=== PATIENT | female | born 1955 | race Caucasian/White ===

== ENCOUNTER → 2018-04-19 10:51 | Outpatient (CLI) | payer OTHER, SELFPAY ==
[2018-04-22 14:35] LABS: HPV Reflexed? NOT INDICATED
== END ==
PROVIDERS: Family Provider Family Medicine; PCP Family Medicine; Visit Provider Obstetrics & Gynecology
DX: Z12.4 Encounter for screening for malignant neoplasm of cervix (principal)
CPT/HCPCS: 88175; G0145

== ENCOUNTER → 2019-05-27 13:52 | Outpatient (CLI) | payer OTHER, SELFPAY ==
[2019-03-30 16:02] VITALS: BMI 44.2
[2019-05-27 15:51] LABS: Creatinine, Serum 0.62 mg/dL (0.55-1.02); EST Glomerular Filtration Rate 103 mL/min (>60); Est Glom Filt Rate - Afr Amer 125 mL/min (>60)
== END ==
PROVIDERS: Family Provider Preventive Medicine Occupational Medicine; PCP Preventive Medicine Occupational Medicine; Referring Provider Physician Assistant Surgical; Visit Provider Physician Assistant Surgical
DX: Z01.818 Encounter for other preprocedural examination (principal); M16.12 Unilateral primary osteoarthritis, left hip
CPT/HCPCS: 36415; 82565

== ENCOUNTER → 2020-04-10 09:59 | Outpatient (CLI) | payer OTHER, SELFPAY ==
[2020-03-19 15:40] VITALS: BMI 45.3
--- NOTE | 2020-04-10 10:00 | ECHOD_ITS ---
Reason For Study: Murmur Procedure This was a 2D Doppler, Color Flow transthoracic echocardiogram. The exam was of adequate technical quality. Exam performed in department. Left Ventricle Normal LV size. Left ventricular systolic function is normal. The estimated ejection fraction is 65 %. No evidence for diastolic dysfunction. No regional wall motion abnormalities noted. Right Ventricle Normal RV size. Normal systolic function. Atria Normal left atrium. Normal right atrium. Probable chiari network. No doppler evidence for ASD. Mitral Valve There is no mitral annular calcification. Normal mitral valve. Mild (1+) mitral valve insufficiency. Tricuspid Valve Normal tricuspid valve. Mild tricuspid valve insufficiency. Right ventricular systolic pressure estimated to be 28 mmHg. Aortic Valve Trisinus/trileaflet aortic valve. Normal aortic valve. Pulmonic Valve The pulmonic valve is not well visualized. Great Vessels Normal sized aortic root. Pericardium/Pleural No pericardial effusion. MMode/2D Measurements & Calculations LVIDd: 4.5 cm IVSd: 1.3 cm Ao root diam: 2.5 cm LVIDs: 2.5 cm LVPWd: 1.1 cm LA dimension: 4.0 cm RVDd: 3.6 cm FS: 44.5 % LAV(MOD-bp): 53.2 ml LA A4 area: 19.9 cm2 RA A4 area: 17.5 cm2 LAV(MOD-bp) Indexed: 25.5 ml/m2 LAV(MOD-sp2): 43.7 ml LAV(MOD-sp4): 51.3 ml Time Measurements MV dec time: 0.24 sec Doppler Measurements & Calculations MV E max daron: 93.6 cm/sec Lat Peak E' Daron: 7.2 cm/sec Med Peak E' Daron: 7.7 cm/sec MV A max daron: 80.4 cm/sec E/E' lat: 13.0 E/E' med: 12.1 MV E/A: 1.2 MV V2 max: 101.6 cm/sec MV P1/2t max daron: 100.3 cm/sec Ao V2 max: 172.9 cm/sec MV max P.1 mmHg MV P1/2t: 93.1 msec Ao max P.0 mmHg MV V2 mean: 56.6 cm/sec MV dec slope: 315.4 cm/sec2 MV mean P.5 mmHg MVA(P1/2t): 2.4 cm2 MV V2 VTI: 32.0 cm LV V1 max: 159.2 cm/sec PA V2 max: 82.4 cm/sec TR max daron: 249.3 cm/sec LV V1 max P.1 mmHg TR max P.9 mmHg Interpretation Summary Left ventricular systolic function is normal. The estimated ejection fraction is 65 %. Probable chiari network. Mild (1+) mitral valve insufficiency. Mild tricuspid valve insufficiency. Right ventricular systolic pressure estimated to be 28 mmHg. No evidence for diastolic dysfunction. Ordering Physician: Josh Willis Referring Physician: Ahmet Mayes Performed By: Cruz Harry RCS
== END ==
PROVIDERS: PCP Preventive Medicine Occupational Medicine; Referring Provider Internal Medicine Cardiovascular Disease; Visit Provider Internal Medicine Cardiovascular Disease
DX: R55 Syncope and collapse (principal); R01.1 Cardiac murmur, unspecified; E78.5 Hyperlipidemia, unspecified; I10 Essential (primary) hypertension
CPT/HCPCS: 93306

== ENCOUNTER → 2020-05-04 09:53 | Outpatient (CLI) | payer OTHER, SELFPAY ==
[2020-03-19 15:40] VITALS: BMI 45.3
--- NOTE | 2020-05-04 09:54 | VDLE_ITS ---
Reason For Study: Swelling Procedure LEFT Exam performed in department. GSV is normal. A preliminary report was called and/or faxed CFV is compressible, spontaneous, phasic, to Lazaro. competent, and demonstrates normal augmentation. FV is compressible, spontaneous, phasic, competent and demonstrates normal augmentation. POP V is compressible, spontaneous, phasic, competent and demonstrates normal augmentation. T/P Trunk is compressible. PTV is compressible. LT PerV is compressible. Interpretation Summary There is no evidence of left lower extremity deep vein thrombosis. Left great saphenous vein appears patent and compressible segmentally. Ordering Physician: Josh Willis Referring Physician: Ahmet Mayes Performed By: Brooke Claire RVT and Student
== END ==
PROVIDERS: PCP Preventive Medicine Occupational Medicine; Referring Provider Internal Medicine Cardiovascular Disease; Visit Provider Internal Medicine Cardiovascular Disease
DX: R60.0 Localized edema (principal)
CPT/HCPCS: 93971

== ENCOUNTER 2020-11-01 10:20 | Outpatient (RCR) | payer OTHER, SELFPAY ==
[2020-03-19 15:40] VITALS: BMI 45.3
[2020-11-01] MEDS: COVID-19 VACC, MRNA(PFIZER)/PF 30 MCG/0.3 ML SYRINGE IM (18:40)
[2020-11-22] MEDS: COVID-19 VACC, MRNA(PFIZER)/PF 30 MCG/0.3 ML SYRINGE IM (17:56)
== END 2020-11-01 23:59 ==
LOC: IMMUN 10:20
PROVIDERS: PCP Preventive Medicine Occupational Medicine; Referring Provider Family Medicine; Visit Provider Family Medicine
DX: Z23 Encounter for immunization (principal)
CPT/HCPCS: 0001A; 0002A; 91300

== ENCOUNTER → 2021-06-04 14:19 | Outpatient (CLI) | payer MEDICARE, OTHER, SELFPAY | PROVIDERS: PCP Preventive Medicine Occupational Medicine; Referring Provider Internal Medicine Cardiovascular Disease; Visit Provider Internal Medicine Cardiovascular Disease | DX: I10 Essential (primary) hypertension (principal); E78.5 Hyperlipidemia, unspecified; R60.9 Edema, unspecified; I38 Endocarditis, valve unspecified | CPT/HCPCS: 36415; 80048 ==

== ENCOUNTER → 2021-06-04 16:54 | Outpatient (CLI) | payer MEDICARE, OTHER, SELFPAY ==
[2021-06-04 18:14] LABS: Anion Gap 7 (5-15); BUN 14 mg/dL (7-18); BUN/Creat Ratio 15.8 RATIO (10-20); Calcium,Total 8.9 mg/dL (8.5-10.1); Chloride 104 mmol/L (98-107); Creatinine, Serum 0.89 mg/dL (0.55-1.02); EST Glomerular Filtration Rate 68 mL/min (>60); Est Glom Filt Rate - Afr Amer 82 mL/min (>60); Glucose 124 mg/dL (74-106); Potassium 3.5 mmol/L (3.5-5.1); Sodium Level 142 mmol/L (136-145)
== END ==
PROVIDERS: PCP Preventive Medicine Occupational Medicine; Visit Provider Internal Medicine Cardiovascular Disease
DX: I38 Endocarditis, valve unspecified (principal); I10 Essential (primary) hypertension; E78.5 Hyperlipidemia, unspecified; R60.9 Edema, unspecified
CPT/HCPCS: 80048

== ENCOUNTER → 2021-07-31 16:22 | Outpatient (CLI) | payer MEDICARE, OTHER, SELFPAY ==
[2021-07-31 17:20] LABS: Anion Gap 8 (5-15); BUN 14 mg/dL (7-18); BUN/Creat Ratio 17.6 RATIO (10-20); Calcium,Total 8.8 mg/dL (8.5-10.1); Chloride 101 mmol/L (98-107); EST Glomerular Filtration Rate 77 mL/min (>60); Est Glom Filt Rate - Afr Amer 93 mL/min (>60); Glucose 108 mg/dL (74-106); Potassium 3.7 mmol/L (3.5-5.1); Sodium Level 140 mmol/L (136-145)
== END ==
PROVIDERS: PCP Preventive Medicine Occupational Medicine; Visit Provider Internal Medicine Cardiovascular Disease
DX: I10 Essential (primary) hypertension (principal); I38 Endocarditis, valve unspecified
CPT/HCPCS: 36415; 80048

== ENCOUNTER → 2022-08-26 | Outpatient (CLI) | payer MEDICARE, OTHER, SELFPAY ==
--- NOTE | 2022-08-26 08:49 | AAVD_ITS ---
Reason For Study: Compression of vein Aorta Measurements IVC throughout is phasic and patent. Right CIV is phasic and patent. Left CIV is phasic and patent. Right EIV is phasic and patent. Left EIV is phasic and patent. Procedure Aorta IVC Iliac vasculature or bypass grafts [id number]. Exam performed in department. VL/Abd Aortic/IVC Duplex scan Interpretation Summary Patent inferior vena cava and iliac veins with normal flow characteristics Ordering Physician: Noe Bell Referring Physician: Ahmet Mayes Performed By: Brooke Claire RVT
== END | disposition home or self-care (01) ==
LOC: CVS 08:46
PROVIDERS: PCP Preventive Medicine Occupational Medicine; Referring Provider Podiatrist; Visit Provider Podiatrist
DX: I87.1 Compression of vein (principal)
CPT/HCPCS: 93978

== ENCOUNTER → 2023-02-12 | Outpatient (CLI) | payer MEDICARE, OTHER, SELFPAY ==
[2023-02-12 17:32] LABS: Absolute Lymphocyte Count 2.55 X10^3/uL (0.83-4.51); Absolute Neutrophil Count 5.1 X10^3/uL (2.0-7.7); Basophil# 0.03 X10^3/uL; Basophil% 0.3 % (0-1); Eosinophil# 0.33 X10^3/uL; Eosinophils% 3.8 % (0-5); Hematocrit 40.4 % (37-47); Hemoglobin 13.3 g/dL (12.0-15.0); Lymphocyte # 2.55 X10^3/ul (0.83-4.51); Lymphocyte % 29.4 % (19-41); Mean Corp Hgb Conc 32.9 g/dL (32-36); Mean Corpuscular Volume 94.2 fL (81-99); Mean Platelet Vol. 10.2 fl (6.2-12.0); Monocyte# 0.63 X10^3/uL; Monocyte% 7.3 % (0-10); NRBC Flagged by Analyzer 0 % (0-5); Neutrophil % 58.7 % (47-70); Platelet Count 284 K/mm3 (150-450); RBC Distribution Width CV 15.1 % (11.6-14.6); RBC Distribution Width SD 52.6 fl (35.1-43.9); Red Blood Count 4.29 M/mm3 (4.2-5.4); White Blood Count 8.7 K/mm3 (4.4-11.0)
[2023-02-12 18:22] LABS: Anion Gap 6 (5-15); BUN 12 mg/dL (7-18); BUN/Creat Ratio 16.4 RATIO (10-20); Calcium,Total 9.3 mg/dL (8.5-10.1); Chloride 102 mmol/L (98-107); Creatinine, Serum 0.73 mg/dL (0.55-1.02); EST Glomerular Filtration Rate 85 mL/min (>60); Est Glom Filt Rate - Afr Amer 102 mL/min (>60); Glucose 87 mg/dL (74-106); Potassium 3.5 mmol/L (3.5-5.1); Sodium Level 138 mmol/L (136-145)
[2023-02-12 18:37] LABS: BNP,B-Type NATRIURETIC PEPTIDE 141.7 pg/mL (0-100)
== END | disposition home or self-care (01) ==
LOC: LAB 17:04
PROVIDERS: PCP Internal Medicine; Visit Provider Nurse Practitioner Family
DX: R06.00 Dyspnea, unspecified (principal); I38 Endocarditis, valve unspecified; I10 Essential (primary) hypertension
CPT/HCPCS: 36415; 80048; 83880; 85025

== ENCOUNTER → 2023-02-25 | Outpatient (CLI) | payer MEDICARE, OTHER, SELFPAY ==
--- NOTE | 2023-02-25 07:41 | ECHOD_ITS ---
Reason For Study: SOB, Preop Procedure This was a 2D Doppler, Color Flow transthoracic echocardiogram. Exam performed in department. Left Ventricle Normal LV size. Left ventricular systolic function is normal. The estimated ejection fraction is 60 %. No regional wall motion abnormalities noted. Right Ventricle Normal RV size. Normal systolic function. Atria Normal left atrium. Normal right atrium. Mitral Valve Normal mitral valve. Tricuspid Valve Normal tricuspid valve. Mild to moderate (1-2+) tricuspid valve insufficiency. Pulmonary artery systolic pressure is 42 mmHg. Aortic Valve Normal aortic valve. Pulmonic Valve Normal pulmonic valve. Great Vessels Normal aortic root. Pericardium/Pleural No pericardial effusion. MMode/2D Measurements & Calculations LVIDd: 4.6 cm IVSd: 1.0 cm Ao root diam: 2.8 cm LVIDs: 2.7 cm LVPWd: 0.94 cm RVDd: 4.1 cm FS: 41.0 % LAV(MOD-bp): 51.0 ml LVAd ap4: 24.1 cm2 SV(MOD-sp4): 43.4 ml LAV(MOD-bp) Indexed: 23.8 ml/m2 LVLd ap4: 7.6 cm LAV(MOD-sp2): 37.4 ml EDV(MOD-sp4): 62.7 ml LAV(MOD-sp4): 62.1 ml EDV(sp4-el): 64.8 ml LVAs ap4: 12.0 cm2 LVLs ap4: 6.4 cm ESV(MOD-sp4): 19.3 ml ESV(sp4-el): 19.1 ml EF(MOD-sp4): 69.2 % EF(sp4-el): 70.6 % SV(sp4-el): 45.7 ml LA A4 area: 21.8 cm2 LA dimension(2D): 4.0 cm RA A4 area: 16.5 cm2 Time Measurements MV dec time: 0.24 sec Doppler Measurements & Calculations MV E max daron: 104.5 cm/sec Lat Peak E' Daron: 8.0 cm/sec Med Peak E' Daron: 8.6 cm/sec MV A max daron: 76.7 cm/sec E/E' lat: 13.1 E/E' med: 12.1 MV E/A: 1.4 MV V2 max: 97.7 cm/sec Ao V2 max: 150.3 cm/sec MV max P.8 mmHg MV dec slope: 435.1 cm/sec2 Ao max P.0 mmHg MV V2 mean: 52.7 cm/sec Ao V2 mean: 103.9 cm/sec MV mean P.4 mmHg Ao mean P.0 mmHg MV V2 VTI: 35.1 cm Ao V2 VTI: 39.0 cm AV (velocity ratio): 0.86 LV V1 max: 136.6 cm/sec PA V2 max: 93.3 cm/sec TR max daron: 310.8 cm/sec LV V1 max P.5 mmHg TR max P.6 mmHg LV V1 mean P.5 mmHg LV V1 mean: 101.3 cm/sec LV V1 VTI: 33.7 cm ECHO/Echo Complete Interpretation Summary Normal LV size. Left ventricular systolic function is normal. The estimated ejection fraction is 60 %. Normal left atrium. Mild to moderate (1-2+) tricuspid valve insufficiency. Pulmonary artery systolic pressure is 42 mmHg. Ordering Physician: Dejon Cuello Referring Physician: Magda Perez Performed By: Khushboo VARGAS RDCS, Elisha and Student
--- NOTE | 2023-02-25 17:14 | STRESSREP ---
Stress Test Report Pharmacologic myocardial perfusion stress test. 68-year-old lady with a history of dyspnea on preop evaluation Resting EKG demonstrates sinus rhythm with a rate of 60 bpm. Resting blood pressure is 148/94 mmHg. 0.4 mg of regadenoson was infused per usual protocol followed by rapid intravenous saline flush injection. Continuous EKG monitoring was performed. The maximum heart rate was 70 bpm which was 45% of max impacted heart rate the maximum workload was 1 metabolic equivalent. At rest there were no ST or T wave changes noted to suggest ischemia and at peak infusion nonspecific ST changes were noted which did not meet the criteria for ischemia. No clinical angina is noted. The final blood pressure was 128/74 mmHg. Myocardial perfusion protocol. 14.2 mCi of technetium 99m sestamibi was injected at rest. 0.4 mg of regadenoson was infused per usual protocol. At peak infusion 44.6 mCi of technetium 99m sestamibi was injected stress images were obtained stress and rest images were reconstructed and compared in the short axis vertical long and horizontal long axis. Gated images were also obtained. Perfusion SPECT analysis: Review of the stress images demonstrate normal uptake of tracer noted in all areas of the myocardium. The resting images similar demonstrated normal uptake of tracer noted in all areas of the myocardium. No areas of reversibility are noted to suggest ischemia and no previous infarct is noted. Gated SPECT analysis: The gated ejection fraction is 77%. Conclusion: Normal pharmacologic myocardial perfusion stress test. Preserved ejection fraction.
== END | disposition home or self-care (01) ==
LOC: CVS 07:41
PROVIDERS: PCP Internal Medicine; Referring Provider Nurse Practitioner Family; Visit Provider Nurse Practitioner Family
DX: R06.00 Dyspnea, unspecified (principal); I38 Endocarditis, valve unspecified; Z01.818 Encounter for other preprocedural examination; Z01.810 Encounter for preprocedural cardiovascular examination; R55 Syncope and collapse; I10 Essential (primary) hypertension; E78.5 Hyperlipidemia, unspecified; R60.9 Edema, unspecified
CPT/HCPCS: 78452; 93017; 93306; A9500; A4216; J2785

== ENCOUNTER 2024-08-04 22:59 | Emergency (ER) | payer MEDICARE, OTHER, SELFPAY ==
[2024-08-04 22:59] VITALS: BP 194/95; PULSE 102; RESP 18; TEMP 36.9; O2SAT 99; BMI 50.6
[2024-08-04 23:03] VITALS: BP 176/84; PULSE 95; RESP 18; TEMP 37.1; O2SAT 99
--- NOTE | 2024-08-04 23:28 | EX.ED.DYSGE1 ---
HPI History of Present Illness Chief Complaint: Nausea/Vomiting/Diarrhea Informant: patient and spouse/S.O. Narrative Narrative: Patient is a 69-year-old female with past medical history of hypertension hyperlipidemia as well as IBS-D. She states that she was started on Augmentin on Thursday and following the start of the medication she had increasing bouts of diarrhea which she describes as watery. She denies any blood or discoloration to it. She states that there is been no recent travel outside the country or livestock exposure or camping activity. She states she has also been nauseous but has not had bouts of vomiting. She states that secondary to her nausea she has not been able to eat or drink well and with multiple days of poor oral intake as well as recurrent bouts of diarrhea she is concerned about dehydration and therefore comes in for evaluation. She states no one else at home has been sick with similar symptoms [facility] Medical History Preoperative cardiovascular examination Valvular heart disease Essential hypertension Neurocardiogenic syncope IBS (irritable bowel syndrome) RLS (restless legs syndrome) Sleep apnea Depression Anxiety Hyperlipidemia Home Medications ?Medication ?Instructions ?Recorded ?Last Taken ?Type azkhjysdgc-gkbijkdfghjsy-lgkastph 1 ea PO PRN PRN Headache/Pain 09/07/13 Unknown History 50 mg-325 mg-40 mg tablet calcium 600 mg (as 1 ea PO DAILY 09/07/13 Unknown History carbonate)-vitamin D3 10 mcg (400 unit) tablet escitalopram oxalate 20 mg tablet 20 mg PO DAILY 09/07/13 Unknown History pantoprazole 40 mg tablet,delayed 40 mg PO QDAY 02/22/18 Unknown History release multivitamin (Daily Multi-Vitamin 1 tab PO DAILY 03/19/20 Unknown History tablet) pregabalin 225 mg capsule 225 mg PO BID 03/20/21 Unknown History alendronate 35 mg tablet 35 mg PO QWEEK 02/12/23 Unknown History ropinirole 0.5 mg tablet 1 mg PO QHS 02/12/23 Unknown History aspirin 81 mg tablet,delayed See Rx Instructions .Route 02/17/24 Unknown Rx release .COMPLEX #90 tabs atenolol 50 mg tablet 50 mg PO BID #180 tabs 02/17/24 Unknown Rx lisinopril 20 mg tablet 20 mg PO BID #180 tabs 02/17/24 Unknown Rx furosemide 40 mg tablet 40 mg PO DAILY #90 tabs 04/18/24 Unknown Rx potassium chloride 20 mEq 40 meq (2 x 20 mEq) PO DAILY #180 04/18/24 Unknown Rx tablet,extended release tabs cetirizine 10 mg tablet (Zyrtec) 10 mg PO DAILY Allergies 05/26/24 Unknown History diphenoxylate-atropine 2.5 1 tab PO TID-QID 05/26/24 Unknown History mg-0.025 mg tablet (Lomotil) fluticasone propionate 50 intranasal Allergies 05/26/24 Unknown History mcg/actuation nasal spray,suspension (Flonase Allergy Relief) ondansetron 4 mg disintegrating 4 mg PO TID PRN nausea and 08/05/24 Unknown Rx tablet vomiting #21 tabs Allergy/AdvReac Type Severity Reaction Status Date / Time povidone-iodine (From Allergy Swelling Verified 08/04/24 23:03 Betadine) soap (From Betadine) Allergy Swelling Verified 08/04/24 23:03 Family History Father Atrial fibrillation Mother Tachycardia Surgical History History of bilateral cataract extraction History of tonsillectomy Hx of appendectomy History of dilatation and curettage H/O: hysterectomy Social History Smoking Status: Never smoker alcohol intake: never substance use type: does not use caffeine: No ROS ROS ED Constitutional Constitutional ED: Denies chills or fever(s) ENT ENT ED: Denies sore throat Cardiovascular Cardiovascular: Denies chest pain Respiratory/Chest Respiratory/Chest: Denies cough or dyspnea Gastrointestinal Gastrointestinal: Reports abdominal pain, diarrhea and nausea; Denies vomiting Genitourinary Genitourinary ED: Denies dysuria Musculoskeletal Musculoskeletal: Denies myalgias Integumentary Denies rash Neurologic Neurologic: Denies headache(s) Hematologic/Lymphatic Hematologic/Lymphatic: Denies easy bleeding or easy bruising EXAM Physical Exam Const Vital Signs: 08/04/24 22:59 08/04/24 23:03 08/05/24 01:00 Temperature 98.4 F 98.8 F Temperature Source Oral Oral Pulse Rate 102 H 95 84 Respiratory Rate 18 18 18 Blood Pressure 194/95 H 176/84 H 138/67 H Blood Pressure Mean 128 114 90 Pulse Ox 99 99 93 Oxygen Delivery Method Room Air Room Air Room Air 08/05/24 01:13 Temperature 97.9 F Temperature Source Pulse Rate 84 Respiratory Rate 18 Blood Pressure 138/67 H Blood Pressure Mean 90 Pulse Ox 93 Oxygen Delivery Method Positive well nourished, well developed and obese General Appearance ED: well developed; Negative for pallor Nutritional Appearance: obese HEENT Reports dry mucous membranes HEENT Narrative: Mucous membranes are dry and tacky without secondary findings in the posterior pharynx to suggest infection No tongue or lip swelling no oral lesions no airway edema or compromise Mouth ED: Yes dry mucous membranes Mouth: dry mucous membranes Eyes PERRL and EOMs intact bilaterally General Eye ED: Negative for scleral icterus Neck supple Neck Narrative: No nuchal rigidity or meningeal signs noted Resp normal respiratory effort and clear to auscultation bilaterally Cardio regular rate and regular rhythm GI non-tender, non-distended and no masses GI Narrative: Abdomen is soft nontender and nondistended with hyperactive bowel sounds. No voluntary guarding or rigidity or pulsatile mass. Auscultation: hyperactive bowel sounds Palpation: soft Back/Spine no CVA tenderness Extremity normal to inspection Neuro oriented x3, CN's II-XII intact bilaterally and no sensory deficits noted Sensorium / Orientation: alert Motor Exam: strength 5/5 throughout Psych mental status grossly normal Skin no rashes or lesions noted and No skin turgor normal Skin Narrative: Skin turgor is increased General Skin Exam: Negative for jaundice or pallor MDM MDM MDM Narrative Medical decision making narrative: Patient arrived to the ER hypertensive but has a past medical history of this and otherwise with stable vitals. She reported a history of IBS-D and recent use of Augmentin and her diarrhea did not occur till after starting the antibiotic. As she is only been on the antibiotic for a few days my concern for an infectious diarrhea such as C. difficile is low. Also she has not traveled outside the country concern for E. coli is low and I do not feel there is need for a stool sample at this time. As her physical exam and history indicates dehydration there is concern for acute kidney injury and/or electrolyte abnormality. Basic blood work was obtained which shows normal kidney function and no clinically significant electrolyte abnormalities. White count is slight elevated at 12.4 but the patient is afebrile and does not have abdominal pain on palpation and therefore I feel this is stress response and did not feel the need to perform a CT scan. The patient was rehydrated with IV fluid and given Zofran. She was able to tolerate oral fluids in the ER and on repeat evaluation abdomen remains soft and nonsurgical. Therefore at this time as she does not have DAVID or severe electrolyte abnormality and is now tolerating oral fluid I do not feel there is need for further workup. As the Augmentin is most likely driving the worsening diarrhea and I do not have physical exam or laboratory findings concerning for bacterial process I will have her stop the Augmentin and she will prescribe Zofran to help control nausea at home. However at this time without signs of DAVID Mary abnormality and the fact she is able to tolerate oral fluids she is otherwise safe for discharge History & Record Review Discussion w/independent historian: Patient and Significant other Lab Data Attestation: I reviewed the patient's lab results. Labs: Laboratory Results - last 24 hr 08/04/24 23:22 WBC 12.4 H RBC 4.51 Hgb 13.9 Hct 41.4 MCV 91.8 MCH 30.8 MCHC 33.6 RDW Std Deviation 50.7 H RDW Coeff of Miko 15.1 H Plt Count 318 MPV 10.3 Immature Gran % (Auto) 1.800 H Neut % (Auto) 76.4 H Lymph % (Auto) 14.7 L [place] % (Auto) 5.8 Eos % (Auto) 0.8 Baso % (Auto) 0.5 Absolute Neuts (auto) 9.4 H Absolute Lymphs (auto) 1.81 Nucleated RBC % 0 Sodium 137 Potassium 3.4 L Chloride 99 Carbon Dioxide 30.0 Anion Gap 8 BUN 17 Creatinine 0.82 Estim Creat Clear Calc 80.15 Est GFR (MDRD) Af Amer 88 Est GFR (MDRD) Non-Af 73 BUN/Creatinine Ratio 20.6 H Glucose 127 H Calcium 8.9 Magnesium 1.8 Total Bilirubin 0.60 Direct Bilirubin 0.18 AST 17 ALT 21 Alkaline Phosphatase 100 Total Protein 7.6 Albumin 3.6 Globulin 4.0 Lipase 22 Discharge Plan Triage Chief Complaint: Nausea/Vomiting/Diarrhea ED Provider: Raman Ko Dx/Rx/DC Orders Clinical Impression: Nausea, Diarrhea, Dehydration, Essential hypertension, Hyperlipidemia Instructions: Dehydration, ED Diarrhea, Unknown Cause Prescriptions: New ondansetron 4 mg tablet,disintegrating 4 mg PO TID PRN (Reason: nausea and vomiting) Qty: 21 0RF No Action pantoprazole 40 mg tablet,delayed release (DR/EC) 40 mg PO QDAY multivitamin [Daily Multi-Vitamin] Tablet 1 tab PO DAILY pregabalin 225 mg capsule 225 mg PO BID diphenoxylate-atropine [Lomotil] 2.5-0.025 mg tablet 1 tab PO TID-QID alendronate 35 mg tablet 35 mg PO QWEEK ropinirole 0.5 mg tablet 1 mg PO QHS Rx Instructions: administer 1-3 hours before bedtime cetirizine [Zyrtec] 10 mg tablet 10 mg PO DAILY Patient Comments: Spring and fall fluticasone propionate [Flonase Allergy Relief] 50 mcg/actuation spray,suspension intranasal [id number] 1 EACH tablet 1 ea PO PRN PRN (Reason: Headache/Pain) escitalopram oxalate 20 MG tablet 20 mg PO DAILY calcium carbonate-vitamin D3 1 EACH tablet 1 ea PO DAILY lisinopril 20 mg tablet 20 mg PO BID Qty: 180 3RF atenolol 50 mg tablet 50 mg PO BID Qty: 180 3RF aspirin 81 mg tablet,delayed release (DR/EC) See Rx Instructions .ROUTE .COMPLEX Qty: 90 3RF Dose Instruction: take 1 tablet by mouth once daily AT 8 AM Rx Instructions: take 1 tablet by mouth once daily AT 8 AM potassium chloride 20 mEq tablet extended release 40 meq PO DAILY Qty: 180 3RF furosemide 40 mg tablet 40 mg PO DAILY Qty: 90 3RF Primary Care Provider: Magda Perez Referrals: Magda Perez MD [Primary Care Provider] - Activity Restrictions/Additional Instructions: Please stop the Augmentin as I feel this is the main cause of your worsening diarrhea and nausea. Use the Zofran that was prescribed to help with nausea and keep yourself well-hydrated. If you have any further concerns or worsening of symptoms please return to the ER for repeat evaluation Print Language: [place] Disposition Disposition: Home, Self Care
[2024-08-04 23:29] LABS: Absolute Lymphocyte Count 1.81 X10^3/uL (0.83-4.51); Absolute Neutrophil Count 9.4 X10^3/uL (2.0-7.7); Basophil# 0.06 X10^3/uL; Basophil% 0.5 % (0-1); Eosinophils% 0.8 % (0-5); Hematocrit 41.4 % (37-47); Hemoglobin 13.9 g/dL (12.0-15.0); Lymphocyte # 1.81 X10^3/ul (0.83-4.51); Lymphocyte % 14.7 % (19-41); Mean Corp Hgb Conc 33.6 g/dL (32-36); Mean Corpuscular Hgb 30.8 pg (27.0-32.0); Mean Corpuscular Volume 91.8 fL (81-99); Mean Platelet Vol. 10.3 fl (6.2-12.0); Monocyte# 0.72 X10^3/uL; Monocyte% 5.8 % (0-10); NRBC Flagged by Analyzer 0 % (0-5); Neutrophil # 9.44 X10^3/uL (2.7-7.7); Neutrophil % 76.4 % (47-70); Platelet Count 318 K/mm3 (150-450); RBC Distribution Width CV 15.1 % (11.6-14.6); RBC Distribution Width SD 50.7 fl (35.1-43.9); Red Blood Count 4.51 M/mm3 (4.2-5.4); White Blood Count 12.4 K/mm3 (4.4-11.0)
[2024-08-04] MEDS: 0.9% Normal Saline (1000mL) 1,000 ML 999 ML IV (23:29)
[2024-08-04] MEDS: Ondansetron 4 MG/2 ML Vial IV (23:29)
[2024-08-04 23:48] LABS: AST(SGOT) 17 U/L (15-37); Alanine Aminotransfer ALT/SGPT 21 U/L (13-56); Albumin, Serum 3.6 g/dL (3.2-5.0); Alkaline Phosphatase 100 U/L (45-117); Anion Gap 8 (5-15); BUN 17 mg/dL (7-18); BUN/Creat Ratio 20.6 RATIO (10-20); Bilirubin, Direct 0.18 mg/dL (0.00-0.30); Calcium,Total 8.9 mg/dL (8.5-10.1); Chloride 99 mmol/L (98-107); Creatinine, Serum 0.82 mg/dL (0.55-1.02); EST Glomerular Filtration Rate 73 mL/min (>60); Est Glom Filt Rate - Afr Amer 88 mL/min (>60); Estimated Creatinine Clearance 80.15 ml/min; Glucose 127 mg/dL (74-106); Lipase 22 U/L (13-75); Magnesium 1.8 mg/dL (1.6-2.6); Potassium 3.4 mmol/L (3.5-5.1); Protein, Total 7.6 g/dL (6.4-8.2); Sodium Level 137 mmol/L (136-145)
[2024-08-05 01:00] VITALS: BP 138/67; PULSE 84; RESP 18; O2SAT 93
[2024-08-05 01:13] VITALS: BP 138/67; PULSE 84; RESP 18; TEMP 36.6; O2SAT 93
[2024-08-05] MEDS: INHALER, ASSIST DEVICES 1 EACH SPACER INHALATION (01:17)
== END 2024-08-05 01:20 | disposition home or self-care (01) ==
PROVIDERS: Emergency Provider Emergency Medicine; PCP Internal Medicine; Visit Provider Emergency Medicine
DX: R11.2 Nausea with vomiting, unspecified (principal); I10 Essential (primary) hypertension; E78.5 Hyperlipidemia, unspecified; E86.0 Dehydration; Z90.710 Acquired absence of both cervix and uterus; E66.9 Obesity, unspecified; R10.9 Unspecified abdominal pain; K58.0 Irritable bowel syndrome with diarrhea
CPT/HCPCS: 80048; 80076; 83690; 83735; 85025; 96361; 96374; 99283; A4216; J2405

== ENCOUNTER 2024-08-08 13:44 | Emergency (ER) | payer MEDICARE, OTHER, SELFPAY ==
[2024-08-08 13:44] VITALS: BP 157/78; PULSE 54; RESP 16; TEMP 36.8; O2SAT 95; BMI 46.8
--- NOTE | 2024-08-08 14:27 | EKG12_ITS ---
Test Reason : Blood Pressure : */* mmHG Vent. Rate : 54 BPM Atrial Rate : 54 BPM P-R Int : 148 ms QRS Dur : 84 ms QT Int : 494 ms P-R-T Axes : 54 4 23 degrees QTcB Int : 468 ms Sinus bradycardia Otherwise normal ECG Confirmed by ALEXANDRA KING, JONATHAN ([id number]), news copy editor HAILEY MACHADO ([id number]) on 08/09/2024 8:16:45 AM Referred By: Confirmed By: JONATHAN MORRIS MD
--- NOTE | 2024-08-08 14:28 | EX.ED.DYSGE1 ---
HPI History of Present Illness Chief Complaint: Nausea/Vomiting Detail of Chief Complaint: Nausea Informant: patient Narrative Narrative: Patient presents to the emergency department complaint nausea. Nausea is been ongoing for at least 5 or 6 days. Patient states that she had been on Augmentin for an upper respiratory infection and she was taken off. She was seen in the emergency department 5 days ago and at that time she had diarrhea as well. Diarrhea is now resolved. She is able to sip water. She is urinating normally but the urine is dark. She denies fevers. She denies cough or shortness of breath. She denies chest pain. She denies abdominal pain. Patient contacted her primary care physician's office and they were advised to come in and get evaluated and get some IV fluids. Patient has Zofran at home which helps a little bit. [facility] Medical History Preoperative cardiovascular examination Valvular heart disease Essential hypertension Neurocardiogenic syncope IBS (irritable bowel syndrome) RLS (restless legs syndrome) Sleep apnea Depression Anxiety Hyperlipidemia Home Medications ?Medication ?Instructions ?Recorded ?Last Taken ?Type calcium 600 mg (as 1 ea PO DAILY 09/07/13 Unknown History carbonate)-vitamin D3 10 mcg (400 unit) tablet escitalopram oxalate 20 mg tablet 20 mg PO DAILY 09/07/13 Unknown History pantoprazole 40 mg tablet,delayed 40 mg PO QDAY 02/22/18 Unknown History release multivitamin (Daily Multi-Vitamin 1 tab PO DAILY 03/19/20 Unknown History tablet) pregabalin 225 mg capsule 225 mg PO BID 03/20/21 Unknown History alendronate 35 mg tablet 35 mg PO QWEEK 02/12/23 Unknown History ropinirole 0.5 mg tablet 1 mg PO QHS 02/12/23 Unknown History aspirin 81 mg tablet,delayed See Rx Instructions .Route 02/17/24 Unknown Rx release .COMPLEX #90 tabs atenolol 50 mg tablet 50 mg PO BID #180 tabs 02/17/24 Unknown Rx lisinopril 20 mg tablet 20 mg PO BID #180 tabs 02/17/24 Unknown Rx furosemide 40 mg tablet 40 mg PO DAILY #90 tabs 04/18/24 Unknown Rx potassium chloride 20 mEq 40 meq (2 x 20 mEq) PO DAILY #180 04/18/24 Unknown Rx tablet,extended release tabs cetirizine 10 mg tablet (Zyrtec) 10 mg PO DAILY Allergies 05/26/24 Unknown History diphenoxylate-atropine 2.5 1 tab PO TID-QID 05/26/24 Unknown History mg-0.025 mg tablet (Lomotil) fluticasone propionate 50 1 spray intranasal Q12H Allergies 05/26/24 Unknown History mcg/actuation nasal spray,suspension (Flonase Allergy Relief) ondansetron 4 mg disintegrating 4 mg PO TID PRN nausea and 08/05/24 Unknown Rx tablet vomiting #21 tabs ondansetron 4 mg disintegrating 4 mg PO Q8H PRN PRN Nausea #10 tabs 08/08/24 Unknown Rx tablet sulfamethoxazole 800 1 tab PO BID #6 TABLETS 08/08/24 Unknown Rx mg-trimethoprim 160 mg tablet Allergy/AdvReac Type Severity Reaction Status Date / Time povidone-iodine (From Allergy Swelling Verified 08/08/24 13:46 Betadine) soap (From Betadine) Allergy Swelling Verified 08/08/24 13:46 Family History Father Atrial fibrillation Mother Tachycardia Surgical History History of bilateral cataract extraction History of tonsillectomy Hx of appendectomy History of dilatation and curettage H/O: hysterectomy Social History (Updated 08/08/24 @ 13:57 by Sarah Bowen) household members: spouse Smoking Status: Never smoker alcohol intake: never substance use type: does not use caffeine: No ROS ROS ED Review of Systems ROS Unobtainable: other Constitutional Constitutional ED: Reports lethargy; Denies chills, fever(s), sweats or weight loss Eyes Eyes: Denies blurry vision, change in vision or diplopia ENT ENT ED: Denies rhinorrhea or sore throat Cardiovascular Cardiovascular: Denies chest pain, orthopnea or racing heartbeat Respiratory/Chest Respiratory/Chest: Reports dyspnea and dyspnea on exertion; Denies cough, orthopnea or sputum Gastrointestinal Gastrointestinal: Reports nausea; Denies abdominal pain, diarrhea or vomiting Genitourinary Genitourinary ED: Denies dysuria, hematuria or urinary frequency Musculoskeletal Musculoskeletal: Denies arthralgias, back pain, myalgias or neck pain Integumentary Denies abscess, Abrasions or rash Neurologic Neurologic: Denies headache(s) or weakness Psychiatric Psychiatric: Denies anxiety, depression or suicidal thoughts Endocrine Endocrinology: Denies polydipsia, polyphagia or polyuria Hematologic/Lymphatic Hematologic/Lymphatic: Denies easy bleeding, easy bruising or lymphadenopathy Allergic/Immunologic Allergic/Immunologic ED: Denies mouth swelling, tongue swelling or urticaria EXAM Physical Exam Const Vital Signs: 08/08/24 13:44 Temperature 98.2 F Temperature Source Oral Pulse Rate 54 L Respiratory Rate 16 Blood Pressure 157/78 H Blood Pressure Mean 104 Pulse Ox 95 Oxygen Delivery Method Room Air Positive well nourished and well developed General Appearance ED: well developed and NAD HEENT Reports TM's clear and moist mucous membranes normocephalic and atraumatic; Negative for trauma or tenderness Tympanic Membrane ED: Yes TM's clear Eyes PERRL and EOMs intact bilaterally General Eye ED: Negative for pale conjunctiva or scleral icterus Neck no lymphadenopathy, supple and no JVD General: Negative for tenderness Chest Wall inspection of chest normal and palpation of chest normal Chest: Negative for tenderness Resp normal respiratory effort and clear to auscultation bilaterally Effort and Inspection: Negative for respiratory distress or pain with movement Auscultation: Negative for rhonchi, wheezes or diminished lung sounds Cardio regular rate, regular rhythm, S1 normal heart sound, S2 normal heart sound and no murmurs Peripheral Pulses: pulses 2+ throughout GI normal to inspection, nondistended, normoactive bowel sounds, soft to palpation, non-tender, non-distended and no masses Back/Spine no CVA tenderness and no thoracic nor lumbar tenderness Extremity normal to inspection General Extremety ED: Negative for edema General Extremity: Negative for edema Neuro oriented x3, CN's II-XII intact bilaterally, no sensory deficits noted and gait normal Sensorium / Orientation: awake, alert, oriented to person, oriented to place and oriented to time Motor Exam: strength 5/5 throughout and strength abnormal Psych mental status grossly normal Skin no rashes or lesions noted and no wounds MDM MDM MDM Narrative Medical decision making narrative: Patient with nausea without abdominal pain. Initially she had diarrhea after starting Augmentin the same day she started Augmentin. Patient states the diarrhea has now stopped but continues to have nausea. In the differential would be medication side effect versus viral gastroenteritis. She does not have any abdominal pain. She complaining of darker urine but also in the differential would be UTI. Also will rule out cardiac cause. She is not having chest pain. EKG obtained arrival showed a sinus rhythm with ventricular rate of 54 bpm with no acute ST segment changes. CBC with differential count of 11.1 with hemoglobin 14.2 and platelet count of 306. Chemistries were unremarkable. LFTs were normal. Potassium slightly depressed at 3.2 for which I did give her 40 mEq of potassium chloride p.o. Lipase was normal at 17. Urinalysis positive for 50-100 WBCs and rare bacteria with 500 leukocyte esterase. I did send off a urine culture. Will treat her with Bactrim for 3 days. Advised to follow-up with primary care physician within next 3 to 5 days. Will write a prescription for Zofran as well as Bactrim. Patient advised to return if fever, vomiting, dehydration, or condition should worsen anyway. Lab Data Attestation: I reviewed the patient's lab results. Labs: Laboratory Results - last 24 hr 08/08/24 08/08/24 14:40 14:58 WBC 11.1 H RBC 4.55 Hgb 14.2 Hct 41.7 MCV 91.6 MCH 31.2 MCHC 34.1 RDW Std Deviation 49.9 H RDW Coeff of Miko 15.0 H Plt Count 306 MPV 10.3 Immature Gran % (Auto) 1.300 H Neut % (Auto) 68.8 Lymph % (Auto) 20.7 [place] % (Auto) 6.7 Eos % (Auto) 2.0 Baso % (Auto) 0.5 Absolute Neuts (auto) 7.7 Absolute Lymphs (auto) 2.30 Nucleated RBC % 0 Sodium 138 Potassium 3.2 L Chloride 100 Carbon Dioxide 32.0 Anion Gap 6 BUN 11 Creatinine 0.69 Estim Creat Clear Calc 78.28 Est GFR (MDRD) Af Amer 108 Est GFR (MDRD) Non-Af 89 BUN/Creatinine Ratio 15.9 Glucose 89 Calcium 9.2 Total Bilirubin 1.00 AST 32 ALT 32 Alkaline Phosphatase 99 Troponin I High Sens 8 Total Protein 7.3 Albumin 3.3 Globulin 4.0 Albumin/Globulin Ratio 0.8 L Lipase 17 Urine Color Yellow Urine Clarity Clear Urine pH 6.0 Ur Specific [place] 1.020 Urine Protein 15 H Urine Glucose (UA) Normal Urine Ketones 5 H Urine Occult Blood 10 H Urine Nitrite Negative Urine Bilirubin Negative Urine Urobilinogen Normal Ur Leukocyte Esterase 500 H Urine RBC 0-5 SEEN Urine WBC 50-100 SEEN Ur Squamous Epith Cells 5-10 SEEN Urine Bacteria RARE WBC Casts 0-5 SEEN Urine Mucus 0 SEEN EKG Initial EKG: Attestation: I personally reviewed and interpreted this EKG as follows: Comments: Sinus bradycardia with rate of 54 bpm with no acute ST segment changes Discharge Plan Triage Chief Complaint: Nausea/Vomiting ED Provider: Freya Monique Dx/Rx/DC Orders Clinical Impression: Nausea, Acute UTI Instructions: UTIs Understanding, ED Vomiting (Adult) Prescriptions: New sulfamethoxazole-trimethoprim 800-160 mg tablet 1 tab PO BID Qty: 6 0RF ondansetron 4 mg tablet,disintegrating 4 mg PO Q8H PRN PRN (Reason: Nausea) Qty: 10 0RF No Action pantoprazole 40 mg tablet,delayed release (DR/EC) 40 mg PO QDAY multivitamin [Daily Multi-Vitamin] Tablet 1 tab PO DAILY pregabalin 225 mg capsule 225 mg PO BID diphenoxylate-atropine [Lomotil] 2.5-0.025 mg tablet 1 tab PO TID-QID alendronate 35 mg tablet 35 mg PO QWEEK ropinirole 0.5 mg tablet 1 mg PO QHS Rx Instructions: administer 1-3 hours before bedtime cetirizine [Zyrtec] 10 mg tablet 10 mg PO DAILY Patient Comments: Spring and fall fluticasone propionate [Flonase Allergy Relief] 50 mcg/actuation spray,suspension 1 spray intranasal Q12H escitalopram oxalate 20 MG tablet 20 mg PO DAILY calcium carbonate-vitamin D3 1 EACH tablet 1 ea PO DAILY ondansetron 4 mg tablet,disintegrating 4 mg PO TID PRN (Reason: nausea and vomiting) Qty: 21 0RF lisinopril 20 mg tablet 20 mg PO BID Qty: 180 3RF atenolol 50 mg tablet 50 mg PO BID Qty: 180 3RF aspirin 81 mg tablet,delayed release (DR/EC) See Rx Instructions .ROUTE .COMPLEX Qty: 90 3RF Dose Instruction: take 1 tablet by mouth once daily AT 8 AM Rx Instructions: take 1 tablet by mouth once daily AT 8 AM potassium chloride 20 mEq tablet extended release 40 meq PO DAILY Qty: 180 3RF furosemide 40 mg tablet 40 mg PO DAILY Qty: 90 3RF Primary Care Provider: Magda Perez Referrals: Magda Perez MD [Primary Care Provider] - 3-5 Days Print Language: Austrian Disposition Disposition: Home, Self Care
[2024-08-08 14:47] LABS: Absolute Neutrophil Count 7.7 X10^3/uL (2.0-7.7); Basophil# 0.06 X10^3/uL; Basophil% 0.5 % (0-1); Eosinophil# 0.22 X10^3/uL; Hematocrit 41.7 % (37-47); Hemoglobin 14.2 g/dL (12.0-15.0); Lymphocyte % 20.7 % (19-41); Mean Corp Hgb Conc 34.1 g/dL (32-36); Mean Corpuscular Hgb 31.2 pg (27.0-32.0); Mean Corpuscular Volume 91.6 fL (81-99); Mean Platelet Vol. 10.3 fl (6.2-12.0); Monocyte# 0.74 X10^3/uL; Monocyte% 6.7 % (0-10); NRBC Flagged by Analyzer 0 % (0-5); Neutrophil # 7.66 X10^3/uL (2.7-7.7); Neutrophil % 68.8 % (47-70); Platelet Count 306 K/mm3 (150-450); RBC Distribution Width SD 49.9 fl (35.1-43.9); Red Blood Count 4.55 M/mm3 (4.2-5.4); White Blood Count 11.1 K/mm3 (4.4-11.0)
[2024-08-08] MEDS: 0.9% Normal Saline (1000mL) 1,000 ML 1000 ML IV (14:56)
[2024-08-08] MEDS: Ondansetron 4 MG/2 ML Vial IV (14:56)
[2024-08-08 15:07] LABS: Mucous, Urine 0 SEEN /hpf (<or=2+)
[2024-08-08 15:07] LABS: ALB/GLOB Ratio 0.8 RATIO (0.9-2.4); AST(SGOT) 32 U/L (15-37); Alanine Aminotransfer ALT/SGPT 32 U/L (13-56); Albumin, Serum 3.3 g/dL (3.2-5.0); Alkaline Phosphatase 99 U/L (45-117); Anion Gap 6 (5-15); BUN 11 mg/dL (7-18); BUN/Creat Ratio 15.9 RATIO (10-20); Calcium,Total 9.2 mg/dL (8.5-10.1); Chloride 100 mmol/L (98-107); Creatinine, Serum 0.69 mg/dL (0.55-1.02); EST Glomerular Filtration Rate 89 mL/min (>60); Est Glom Filt Rate - Afr Amer 108 mL/min (>60); Estimated Creatinine Clearance 78.28 ml/min; Glucose 89 mg/dL (74-106); Lipase 17 U/L (13-75); Potassium 3.2 mmol/L (3.5-5.1); Protein, Total 7.3 g/dL (6.4-8.2); Sodium Level 138 mmol/L (136-145); Troponin-I HS 8 pg/mL (3.0-54.0)
[2024-08-08 15:13] LABS: Color, Urine Yellow (Yellow); Glucose, Dipstick Normal (Normal); Ketone-Dipstick 5 mg/dl (Negative); Leukocyte Esterase-Dipstick 500 /ul (Negative); Nitrite-Dipstick Negative (Negative); Occult Blood-Urine 10 /ul (Negative); Protein-Dipstick 15 mg/dl (Negative); Urine Bilirubin Dipstick Negative (Negative); Urine Clarity Clear (Clear); Urine Urobilinogen Normal (Normal)
[2024-08-08 15:26] LABS: Bacteria RARE /hpf (None Seen); Red Blood Cells-Urine 0-5 SEEN /hpf (0-5); Squamous Epithelial Cells - UA 5-10 SEEN /hpf (5-10); White Blood Cells 50-100 SEEN /hpf (0-5); White Cell Cast 0-5 SEEN /lpf (None Seen)
[2024-08-08 15:44] VITALS: BP 149/83; PULSE 55; RESP 16; O2SAT 98
[2024-08-08] MEDS: Smz/Tmp Ds Tablet 1 TABLET PO (15:47)
[2024-08-08] MEDS: Potassium Chloride Oral Tablet 20 MEQ 40 MEQ PO (15:47)
[2024-08-08 16:45] VITALS: BP 149/83; PULSE 55; RESP 16; TEMP 36.6; O2SAT 98
== END 2024-08-08 16:46 | disposition home or self-care (01) ==
PROVIDERS: Emergency Provider Emergency Medicine; PCP Internal Medicine; Visit Provider Emergency Medicine
DX: R11.2 Nausea with vomiting, unspecified (principal); N39.0 Urinary tract infection, site not specified; I10 Essential (primary) hypertension; F32.A Depression, unspecified; F41.9 Anxiety disorder, unspecified; Z79.899 Other long term (current) drug therapy; G25.81 Restless legs syndrome; Z79.82 Long term (current) use of aspirin; Z98.41 Cataract extraction status, right eye; Z98.42 Cataract extraction status, left eye; Z90.49 Acquired absence of other specified parts of digestive tract; Z90.710 Acquired absence of both cervix and uterus
CPT/HCPCS: 80053; 81001; 83690; 84484; 85025; 87086; 87088; 93005; 96361; 96374; 99284; A4216; J2405